=== PATIENT | female | born 1990 | race African-American/Black ===

== ENCOUNTER 2017-04-23 10:16 | Emergency (ER) | payer OTHER ==
[2017-04-23 10:48] VITALS: BP 112/64; PULSE 90; TEMP 98.4
[2017-04-23] MEDS ORDERED: ALBUTEROL SO4 2.5/IPRATROPIUM 0.5 INH SOL 3 ML VIAL.NEB. NEB ONE ×4 (11:20→11:52)
--- NOTE | 2017-04-23 11:23 | PDOC ---
History of Present Illness - General Chief Complaint: Shortness of Breath Stated Complaint: SOB (21 WKS ) Time Seen by Provider: 04/23/17 11:07 History Source: Patient Exam Limitations: No Limitations - History of Present Illness Initial Comments: 04/23/17 11:25 Patient came for evaluation of cough, congestion, and feelings of shortness of breath. Denies fever, denies phlegm production but feels is tight in his wheezing. Denies history of asthma, child has been ill and was treated with antibiotics for strep infection a week ago however no strep culture was taken. Patient denies sore throat pain, ear pain, nausea vomiting. Is 20 weeks and states has gone without complication Timing/Duration: unsure, 24 hours Severity: mild, moderate Associated Symptoms: reports: cough, malaise. denies: nausea/vomiting Past History - Travel Traveled outside of the country in the last 30 days: No Close contact w/someone who was outside of country & ill: No - Past Medical History Allergies/Adverse Reactions: Allergies Allergy/AdvReac Type Severity Reaction Status Date / Time No Known Allergies Allergy Verified 04/23/17 10:44 Home Medications: Ambulatory Orders Vit No.124/Iron/Folic [ Vitamin Tablet] 1 each PO DAILY Albuterol Sulfate Inhaler - [Ventolin HFA Inhaler -] 1 - 2 inh PO Q4H #1 inhaler 04/23/17 Prednisone [Deltasone -] 20 mg PO BID #8 tablet 04/23/17 CVA: No COPD: No DVT: No - Immunization History Immunization Up to Date: Yes - Suicide/Smoking/Psychosocial Hx Smoking History: Never smoked Have you smoked in the past 12 months: No Information on smoking cessation initiated: No Hx Alcohol Use: No Drug/Substance Use Hx: No Substance Use Type: None Review of Systems - Review of Systems Able to Perform ROS?: Yes Is the patient limited Z[place]ian proficient: Yes Constitutional: Yes: Symptoms Reported, See HPI, Loss of Appetite, Malaise. No : Fever HEENTM: Yes: Symptoms Reported, See HPI, Nose Congestion. No: Throat Pain, Throat Swelling Respiratory: Yes: Symptoms reported, See HPI, Cough, Shortness of Breath, Wheezing Cardiac (ROS): No: Symptoms Reported ABD/GI: No: Symptoms Reported Musculoskeletal: Yes: See HPI. No: Symptoms Reported Integumentary: No: Symptoms Reported, See HPI Neurological: Yes: Symptoms reported, See HPI, Headache All Other Systems: Reviewed and Negative *Physical Exam - Vital Signs Last Vital Signs Temp Pulse Resp BP Pulse Ox 98.4 F 90 15 112/64 98 04/23/17 10:44 04/23/17 10:44 04/23/17 10:44 04/23/17 10:44 04/23/17 10:44 - Physical Exam General Appearance: Yes: Nourished, Appropriately Dressed, Apparent Distress, Mild Distress HEENT: positive: ARNALDO, Normal ENT Inspection, TMs Normal (congested but landmarks easily visualized), Pharynx Normal (no redness, swelling or exudate. Noticed some whitish clear thick posterior sinus drainage). negative: Sinus Tenderness Neck: positive: Supple, Lymphadenopathy (R), Lymphadenopathy (L). negative: Tender Respiratory/Chest: positive: Normal Breath Sounds, Wheezing. negative: Lungs Clear Cardiovascular: positive: Regular Rhythm Gastrointestinal/Abdominal: positive: Normal Bowel Sounds, Soft. negative: Tender ( abdomen ), Guarding, Rebound Musculoskeletal: positive: Normal Inspection Extremity: positive: Normal Capillary Refill, Normal Range of Motion Integumentary: positive: Normal Color, Dry, Warm, Pale Neurologic: positive: manager urgent care II-XII NML intact, Fully Oriented, Alert, Normal Mood/ Affect, Normal Response, Motor Strength 5/5 Medical Decision Making - Medical Decision Making 04/23/17 patient much improved after second DuoNeb, discussed case with Dr. Enriquez who agrees prednisone is indicated for severe asthmatic type symptoms in and encouraged patient follow-up this week as needed *DC/Admit/Observation/Transfer Diagnosis at time of Disposition: Upper respiratory infection, viral - Discharge Dispostion Disposition: HOME Condition at time of disposition: Stable Admit: No - Prescriptions Prescriptions: Albuterol Sulfate Inhaler - [Ventolin HFA Inhaler -] 1 - 2 inh PO Q4H #1 inhaler Prednisone [Deltasone -] 20 mg PO BID #8 tablet - Referrals Referrals: Jayjay Burgos MD [Primary Care Provider] - - Patient Instructions Printed Discharge Instructions: DI for Viral Upper Respiratory Infection -- Adult Additional Instructions: Rest, drink lots of fluids: Teas, water, soups, Pedialyte Saltwater gargles Steamy showers/seem to face break up mucus Avoid contact with others until fevers and cough resolved Lots of handwashing and good hygiene Continue [id number] medications for symptomatic relief Tylenol or Motrin for fever and pain Continue albuterol nebulizers every 4-6 hours for the next 2 days then as needed for continued cough Prednisone as directed until completed Followup with private physician in one to 2 days Return to emergency department / pediatric hospital for worsened symptoms, fevers, dehydration - Post Discharge Activity Forms/Work/School Notes: Back to Work
[2017-04-23] MEDS ORDERED: predniSONE 20 MG TABLET (UD) ONE (12:07)
[2017-04-23] MEDS ORDERED: predniSONE 20 MG TABLET (UD) PO ONE (12:08)
== END 2017-04-23 12:34 | disposition home or self-care (01) ==
LOC: JERFT 10:16
PROC: 3E0F7GC Introduction of Other Therapeutic Substance into Respiratory Tract, Via Natural or Artificial Opening (ICD-10-PCS; principal; 2017-04-23)
PROC: 3E0F7GC Introduction of Other Therapeutic Substance into Respiratory Tract, Via Natural or Artificial Opening (ICD-10-PCS; 2017-04-23)
DX: O99.89 Other specified diseases and conditions complicating pregnancy, childbirth and the puerperium (principal); O99.512 Diseases of the respiratory system complicating pregnancy, second trimester; J06.9 Acute upper respiratory infection, unspecified; Z3A.21 21 weeks gestation of pregnancy
CPT/HCPCS: 99281-25

== ENCOUNTER 2017-08-24 23:20 | Inpatient (IN) | payer OTHER ==
[2017-08-25 01:52] LABS: BASO % 0.5 % (0-2.0); EOS % 0.9 % (0-4.5); HEMATOCRIT 37.2 % (32.4-45.2); HEMOGLOBIN 12.7 GM/dL (10.7-15.3); LYMPH % 8.4 % (8-40); MCH 29.4 pg (25.7-33.7); MCHC 34.1 g/dl (32.0-36.0); MEAN CELL VOLUME 86.3 fl (80-96); MEAN PLT VOLUME 7.7 fl (7.5-11.1); MONO % 5.7 % (3.8-10.2); NEUT % 84.5 % (42.8-82.8); PLATELET COUNT 287 K/MM3 (134-434); RBC 4.31 M/mm3 (3.60-5.2); WHITE BLOOD COUNT 14.5 K/mm3 (4.0-10.0)
[2017-08-25 02:04] LABS: INR 0.93 (0.82-1.09); PROTHROMBIN TIME (PATIENT) 10.5 SEC (9.7-13.0)
[2017-08-25 02:06] LABS: ACTIVATED PTT 22.9 SECONDS (26.9-34.4)
[2017-08-25 02:10] VITALS: BMI 34.3
[2017-08-25 02:11] LABS: ANION GAP 10 (8-16); BLOOD UREA NITROGEN 12 mg/dL (7-18); CALCIUM 8.2 mg/dL (8.5-10.1); CHLORIDE 104 mmol/L (98-107); CO2 24 mmol/L (21-32); CREATININE 0.7 mg/dL (0.55-1.02); GLUCOSE,RANDOM 107 mg/dL (74-106); SODIUM 138 mmol/L (136-145)
[2017-08-25] MEDS ORDERED: BUTORPHANOL TARTRATE 1 MG/ML VIAL IVPB ONE (02:15)
[2017-08-25] MEDS ORDERED: PROMETHAZINE HCL 25 MG/1 ML VIAL IVPB ONE (02:15)
[2017-08-25] MEDS ORDERED: BUTORPHANOL TARTRATE 1 MG/ML VIAL ONE ×2 (02:21)
[2017-08-25] MEDS ORDERED: PROMETHAZINE HCL 25 MG/1 ML VIAL ONE (02:22)
[2017-08-25] MEDS ORDERED: AMPICILLIN SODIUM 2 GM VIAL ONE (02:22)
[2017-08-25] MEDS ORDERED: ELECTROLYTE-148 SOLN 500 ML IV ONE ×2 (02:30→03:30)
[2017-08-25] MEDS ORDERED: AMPICILLIN - 2 GM in SODIUM CHLORIDE 100 ML IVPB ONE (03:00)
[2017-08-25] MEDS ORDERED: ELECTROLYTE-148 SOLN 1,000 ML IV SCH (03:30)
[2017-08-25] MEDS ORDERED: FENTANYL/BUPIVACAINE/NS/PF - PCEA - 50 ML DISP.SYRIN EP ONE ×2 (05:27→09:51)
[2017-08-25] MEDS ORDERED: NALOXONE HCL 0.4 MG/ML VIAL IVPUSH PRN (05:35)
[2017-08-25] MEDS ORDERED: FENTANYL/BUPIVACAINE/NS/PF - PCEA - 50 ML DISP.SYRIN EP SCH (05:45)
[2017-08-25] MEDS ORDERED: AMPICILLIN SODIUM 1 GM VIAL ONE ×2 (06:21→11:00)
[2017-08-25] MEDS: AMPICILLIN - 1 GM in SODIUM CHLORIDE 100 ML IVPB SCH ×2 (06:45→11:03)
[2017-08-25] MEDS ORDERED: DEXTROSE 5%-LACTATED RINGERS 1,000 ML IV SCH (07:15)
--- NOTE | 2017-08-25 07:18 | HP ---
Past Medical History - Primary Care Physician PCP:: Narayan Duran - Admission Chief Complaint: 26yo P1 with at EGA 38w4d admitted with spontaneous labor. History of Present Illness: Spontaneous labor GBS (+) History Source: Patient, Medical Record Limitations to Obtaining History: No Limitations - Past Medical History MANAGER AREA: No: Alzheimer's, CVA, Dementia, Migraine, Multiple Sclerosis, Peripheral Neuropathy, Parkinson's, Seizure, Syncope, TIA, Vertigo, Other Cardiovascular: No: AFIB, Aneurysm, Aortic Insufficiency, Aortic Stenosis, CAD, CHF, Deep Vein Thrombosis, HTN, Hyperlipdemia, HI, Mitral Insufficiency, Mitral Stenosis, Murmur, Pulmonary Hypertension, Other Pulmonary: Yes: Asthma Gastrointestinal: No: Ascites, Cancer, Constipation, Crohn's Disease, Diverticulitis, Diverticulosis, Esophageal Varices, Gastritis, GERD, GI Bleed, Hemorrhoids, Hiatal Hernia, Inflamatory Bowel Disease, Irritable Bowel Disease, Pancreatitis, Peptic Ulcer Disease, Ulcerative Colitis, Other Hepatobiliary: No: Cirrhosis, Cholelithiasis, Cholecystitis, Choledocholithiasis , Hepatitis A, Hepatitis B, Hepatitis C, Other Renal/: No: Renal Failure, Renal Inusuff, BPH, Cancer, Hematuria, Hemodialysis , Neurogenic Bladder, Renal Calculi, UTI, Other ...: 2 ...Para: 1 ...Term: 1 ...: 0 ...Spon : 0 ...Induced : 0 ...Multiple Gestation: 0 ...LMP: 12/01/16 ... Weeks Gestation by Dates: 38.3 ...EDC by Dates: 09/07/17 ...EDC by Sono: 09/05/17 Heme/Onc: No: Anemia, B12 Deficiency, Bleeding Disorder, Cancer, Current Chemotherapy, Current Radiation Therapy, Hemochromatosis, Hypercoaguable State, Myeloproliferative Synd, Sickle Cell Disease, Sickle Cell Trait, Thrombocytopenia, Other Infectious Disease: No: AIDS, C-Diff, Herpes Zoster, HIV, MRSA, STD's, Tuberculosis, VREF, Other Psych: No: Addictions, Anxiety, Bipolar, Depression, Panic, Psychosis, Schizophrenia, Other Musculoskeletal: No: Bursitis, Chronic low back pain, Hemiparesis, Hemiplegia, Osteoarthritis, Paraplegia, Other Rheumatology: No: Fibromyalgia, Gout, Lupus, Rheumatoid Arthritis, Sarcoidosis, Vasculitis, Other ENT: No: Allergic Rhinitis, Sinusitis, Other Endocrine: No: Lyme's Disease, Benji's Disease, Diabetes Insipidus, Diabetes Mellitus, Hyperparathyroidism, Hyperthyroidism, Hypothyroidism, Osteopenia, SIADH, Other Dermatology: No: Basal Cell, Cellulitis, Eczema, Melanoma, Psoriasis, Squamous Cell, Other - Past Surgical History Hx Myomectomy: No Hx Transabdominal Cerclage: No Additional Surgical History: Open wrist fx repair. - Smoking History Smoking history: Never smoked Have you smoked in the past 12 months: No - Alcohol/Substance Use Hx Alcohol Use: No History of Substance Use: reports: None - Social History Usual Living Arrangement: Yes: With Significant Other, With Child ADL: Independent Occupation: Daycare worker History of Recent Travel: No Home Medications - Allergies Allergies/Adverse Reactions: Allergies Allergy/AdvReac Type Severity Reaction Status Date / Time No Known Allergies Allergy Verified 08/24/17 23:50 - Home Medications Home Medications: Ambulatory Orders Vit No.124/Iron/Folic [ Vitamin Tablet] 1 each PO DAILY Albuterol Sulfate Inhaler - [Ventolin HFA Inhaler -] 1 - 2 inh PO Q4H #1 inhaler 04/23/17 Budesonide [Pulmicort Flexhaler] 90 mcg IH BID 08/24/17 Family Disease History - Family Disease History Family Disease History: [place]: Father (Matias andrade) Review of Systems - Review of Systems Constitutional: reports: No Symptoms, Other (Labor pain/ctx) Eyes: reports: No Symptoms HENT: reports: No Symptoms Neck: reports: No Symptoms Cardiovascular: reports: No Symptoms Respiratory: reports: No Symptoms Gastrointestinal: reports: No Symptoms Genitourinary: reports: No Symptoms Breasts: reports: No Symptoms Reported Musculoskeletal: reports: No Symptoms Integumentary: reports: No Symptoms Neurological: reports: No Symptoms Endocrine: reports: No Symptoms Hematology/Lymphatic: reports: No Symptoms Psychiatric: reports: No Symptoms Pain Intensity: 8 Physical Exam - Maternity Vital Signs: Vital Signs Temperature 98.8 F 08/25/17 06:00 Pulse Rate 95 H 08/25/17 06:45 Respiratory Rate 18 08/25/17 06:45 Blood Pressure 110/55 08/25/17 06:45 O2 Sat by Pulse Oximetry (%) 99 08/25/17 06:45 Constitutional: Yes: Well Nourished, No Distress, Calm Eyes: Yes: WNL, Conjunctiva Clear HENT: Yes: WNL, Atraumatic, Normocephalic Neck: Yes: WNL, Supple, Trachea Midline Cardiovascular: Yes: WNL, Regular Rate and Rhythm Lungs: Clear to auscultation, Normal air movement - Abdominal Exam/OB Fundal Height: 38 Number of Fetuses: Single Presentation: Vertex Contractions: Yes Regularity: Regular Intensity: Moderate Monitor Mode: External Heart Rate (range): 140 Heart Rate Location: Midline Category: I Accelerations: Non-Uniform Decelerations: Variable (occasional) - Vaginal Exam/OB Vaginal Bleediing: No Speculum Exam: No Dilatation (cm): 5 Effacement (%): 80 Amniotic Membrane Status: Intact Presentation: Vertex/Position - Physical Exam Musculoskeletal: Yes: WNL Extremities: Yes: WNL Edema: No Integumentary: Yes: WNL Deep Tendon Reflex Grade: Normal +2 ...Motor Strength: WNL Psychiatric: Yes: WNL, Alert, Oriented - Labs Lab Results: CBC, BMP 08/25/17 01:38 08/25/17 01:38 Hemorrhage Risk Assessment - Risk Factors Medium Risk Factors: Yes: None High Risk Factors: Yes: None Risk Score: 1 Risk Level: Medium Risk Assessment/Plan 26yo P1 with at EGA 38w4d admitted with spontaneous labor. Fetus with Category I tracing and does not require intervention. Pt with spontaneous labor , now in active phase. Plan to monitor labor progress. Anticipate . IV abx for GBS.
[2017-08-25] MEDS ORDERED: OXYTOCIN 30 UNITS in 0.9% NS 30 UNIT/500 ML INFUS.BAG IVPB ONE ×2 (08:26→11:10)
[2017-08-25] MEDS ORDERED: TUBERCULIN PPD 5 TU/0.1ML SYRINGE (IN PATIENT USE ONLY) ID ONE (09:00)
--- NOTE | 2017-08-25 09:49 | PN ---
Ante-Partal Exam - Subjective Subjective: No complaints Vital Signs: Vital Signs Temperature 99.2 F 08/25/17 09:21 Pulse Rate 107 H 08/25/17 09:00 Respiratory Rate 18 08/25/17 09:00 Blood Pressure 107/62 08/25/17 09:00 O2 Sat by Pulse Oximetry (%) 99 08/25/17 09:00 Bleeding: No Headache: No Visual changes: No Right upper quadrant pain: No Pain (scale 1-10): 0 - Contractions Contractions: Yes Regularity: Regular (q4min) Intensity: Unaware Monitor Mode: External - Exam during Labor Heart Rate: 140 Variability: Moderate Heart Rate Location: Midline Category: I Monitor Accelerations: Present Monitor Decelerations: None Exam: Vaginal Dilatation (cm): 6 Effacement (%): 90 Amniotic Membrane Status: Ruptured (AROM) Presentation: Vertex Station: 0 - Intrapartum Hemorrhage Risk Medium Risk Factors: None High Risk Factors: None Risk Score: 0 Risk Level: Low Risk - Assessment/Plan Assessment/Plan: 26yo P1 with protracted labor. Fetus with Category I tracing. Plan to augment contractions with pitocin. Plan of care, r/b/a were discussed with pt.
[2017-08-25] MEDS ORDERED: OXYTOCIN 30 UNITS in 0.9% NS 30 UNIT/500 ML INFUS.BAG IVPB SCH (10:00)
[2017-08-25] MEDS ORDERED: LIDOCAINE HCL 1% PRESERVATIVE FREE - 30ML VIAL ONE (11:10)
[2017-08-25] MEDS ORDERED: ALBUTEROL SO4 18 GM HFA INHALER IH PRN ×2 (11:39→14:38)
[2017-08-25] MEDS ORDERED: WITCH HAZEL 50% (TUCKS) 40 PAD/JAR PAD TP PRN (11:41)
[2017-08-25] MEDS ORDERED: ACETAMINOPHEN 325 MG TABLET (FP) PO PRN (11:41)
[2017-08-25] MEDS ORDERED: IBUPROFEN 600 MG TABLET (FP) PO PRN (11:41)
[2017-08-25] MEDS ORDERED: BENZOCAINE 28 GM HEMORRHOIDAL OINTMENT TP PRN (11:41)
[2017-08-25] MEDS ORDERED: BISACODYL 10 MG SUPP.RECT RC PRN (11:41)
[2017-08-25] MEDS ORDERED: METHYLERGONOVINE MALEATE 0.2 MG/1 ML AMP IM PRN (11:41)
[2017-08-25] MEDS ORDERED: BENZOCAINE 20% 57 GM BOTTLE TP PRN (11:41)
[2017-08-25] MEDS ORDERED: D5W-LR W/ 20 UNITS OXYTOCIN 1,000 ML IV SCH (11:45)
--- NOTE | 2017-08-25 11:54 | PN ---
Delivery - Delivery Vaginal Delivery: No Problems, Spontaneous Type of Anesthesia: Epidural Episiotomy/Laceration: None EBL (cc): 300 Delivery, Single - Stages of Labor Date 1st Stage Initiatied: 08/24/17 Time 1st Stage Initiated: 15:15 Date 2nd Stage Initiated: 08/25/17 Time 2nd Stage Initiated: 11:10 Date of Delivery: 08/25/17 Time of Delivery: 11:23 Date Placenta Delivered: 08/25/17 Time Placenta Delivered: 11:28 Placenta: Yes: Spontaneous, Normal Configuration - Condition of Infant Tanning Salon Attendant/Distribution Tech Present: [place]: MagdalenoDejon grant Gender: Female Weight: 2.863 kg Position: Left, OA Total Hours ROM (Hrs/Mins): 1hr/51mins - 1 Minute Total Score: 9 5 Minutes Total Score: 9 - Feeding Plan Initial Plan: Exclusive throughout hospitalization Benefits of Exclusively reinforced: Yes
[2017-08-25] MEDS ORDERED: OXYTOCIN 20 UNITS in 0.9% NS 20 UNIT/1,000 ML INFUS.BAG IV SCH (13:00)
[2017-08-25] MEDS: CLINDAMYCIN 900 MG PREMIX IVPB 900 MG/50 ML BAG IVPB SCH (17:05)
[2017-08-25] MEDS: GENTAMICIN INJECTION 100 MG in DEXTROSE 5%-WATER - 100 ML IVPB SCH (17:56)
[2017-08-25] MEDS: MOMETASONE FUROATE 220 MCG/IH INHALER IH SCH (21:19)
[2017-08-26] MEDS: GENTAMICIN INJECTION 100 MG in DEXTROSE 5%-WATER - 100 ML IVPB SCH (01:27)
[2017-08-26] MEDS: CLINDAMYCIN 900 MG PREMIX IVPB 900 MG/50 ML BAG IVPB SCH (01:27)
--- NOTE | 2017-08-26 07:57 | DS ---
Physical Exam-GOVERNMENT EMPLOYEE Vital Signs: Vital Signs Temperature 97.8 F 08/26/17 05:31 Pulse Rate 74 08/26/17 05:31 Respiratory Rate 18 08/26/17 05:31 Blood Pressure 85/41 08/26/17 05:31 O2 Sat by Pulse Oximetry (%) 100 08/25/17 12:45 Constitutional: Yes: Well Nourished, No Distress, Calm Eyes: Yes: WNL, Conjunctiva Clear HENT: Yes: WNL, Atraumatic, Normocephalic Neck: Yes: WNL, Supple, Trachea Midline Cardiovascular: Yes: WNL, Regular Rate and Rhythm Respiratory: Yes: WNL, Regular, CTA Bilaterally Gastrointestinal: Yes: WNL, Normal Bowel Sounds, Soft Renal/: Yes: WNL Pelvis: Yes: WNL External Genitalia: Yes: Normal ....Post : Yes: Uterus firm, Uterus non-tender Breast(s): Yes: WNL Musculoskeletal: Yes: WNL Extremities: Yes: WNL Edema: No Integumentary: Yes: WNL Neurological: Yes: WNL, Alert, Oriented ...Motor Strength: WNL Psychiatric: Yes: WNL, Alert, Oriented Labs: CBC, BMP 08/25/17 01:38 Delivery - Delivery Vaginal Delivery: No Problems, Spontaneous Type of Anesthesia: Epidural Episiotomy/Laceration: None EBL (cc): 300 Delivery, Single - Stages of Labor Date 1st Stage Initiatied: 08/24/17 Time 1st Stage Initiated: 15:15 Date 2nd Stage Initiated: 08/25/17 Time 2nd Stage Initiated: 11:10 Date of Delivery: 08/25/17 Time of Delivery: 11:23 Time Placenta Delivered: 11:28 Placenta: Yes: Spontaneous, Normal Configuration - Condition of Gun Profiler/Quality Control Clerk Present: [place]: Dejon Dolan Infant Gender: Female Weight: 6 lb 5 oz Position: Left, OA Total Hours ROM (Hrs/Mins): 1hr/51mins - 1 Minute Total Score: 9 5 Minutes Total Score: 9 - [place] Feeding Plan Initial Plan: Exclusive throughout hospitalization Benefits of Exclusively reinforced: Yes Discharge Summary Reason For Visit: LABOR ADMIT Condition: Good - Instructions Diet, Activity, Other Instructions: Physical activity Resume your normal everyday activity as tolerated no heavy lifting or exercise until seen by your surgeon. You may walk unlimited ty of and climb stairs. You may resume driving the car when you feel safe and comfortable behind the wheel. No sexual activity as instructed. Wound care If you have a bandage, leave it on, and keep dry for 48-72 hours. After that time discard the outer bandage. If they are tapes on the skin under the out of bandage leave them in place. They will peel off in the next 7 to 10 days. Do Not Peel them off. You may shower the day after surgery. If there are tapes present on the skin, you may shower over them. Diet There are no dietary restrictions. Eat healthy, high-fiber foods. Drink 6 to 8 glasses of liquid each day. This will assist in keeping your bowels are regular. Pain management You may take Tylenol or acetaminophen or Ibuprofen (for example, Motrin, Advil etc.) from my pain prescription medication is ordered should be taken as prescribed for moderate to severe pain. Call MD for any of the following: Severe pain not relieved by medication Fever of 101 or higher Excessive bleeding or drainage on dressing Inability to urinate Disposition: HOME - Home Medications Comprehensive Discharge Medication List: Ambulatory Orders Vit No.124/Iron/Folic [ Vitamin Tablet] 1 each PO DAILY Albuterol Sulfate Inhaler - [Ventolin HFA Inhaler -] 1 - 2 inh PO Q4H #1 inhaler 04/23/17 Budesonide [Pulmicort Flexhaler] 90 mcg IH BID 08/24/17
--- NOTE | 2017-08-26 07:57 | PN ---
Post Progress Note - Subjective Subjective: No complains, voiding, tolerating regular food, ambulating, breast feeding Post Day: 1 Type of Delivery: Vital Signs: Vital Signs Temperature 97.8 F 08/26/17 05:31 Pulse Rate 74 08/26/17 05:31 Respiratory Rate 18 08/26/17 05:31 Blood Pressure 85/41 08/26/17 05:31 O2 Sat by Pulse Oximetry (%) 100 08/25/17 12:45 Breast Exam: Yes: Soft Uterus: Yes: Fundus Firm Abdomen/GI: Yes: Abdomen soft Lochia: Yes: Rubra Lochia, amount: Small Extremities: Yes: Calves non-tender Perineum: Yes: Intact Activity: Ambulating - Labs Labs: CBC WBC 14.5 K/mm3 (4.0-10.0) H 08/25/17 01:38 RBC 4.31 M/mm3 (3.60-5.2) 08/25/17 01:38 Hgb 12.7 GM/dL (10.7-15.3) 08/25/17 01:38 Hct 37.2 % (32.4-45.2) 08/25/17 01:38 MCV 86.3 fl (80-96) 08/25/17 01:38 MCH 29.4 pg (25.7-33.7) 08/25/17 01:38 MCHC 34.1 g/dl (32.0-36.0) 08/25/17 01:38 RDW 14.0 % (11.6-15.6) 08/25/17 01:38 Plt Count 287 K/MM3 (134-434) 08/25/17 01:38 MPV 7.7 fl (7.5-11.1) 08/25/17 01:38 Neutrophils % 84.5 % (42.8-82.8) H 08/25/17 01:38 Lymphocytes % 8.4 % (8-40) 08/25/17 01:38 Monocytes % 5.7 % (3.8-10.2) 08/25/17 01:38 Eosinophils % 0.9 % (0-4.5) 08/25/17 01:38 Basophils % 0.5 % (0-2.0) 08/25/17 01:38 Assessment/Plan 26yo P2 now, s/p doing well VSS, Afebrile continue routine care Rh positive, no need for RhoGam plan to d/c 08/27/17 NPV for 6wks RTO 4-6wks
[2017-08-26 08:03] LABS: BASO % 0.5 % (0-2.0); EOS % 3.7 % (0-4.5); LYMPH % 12.6 % (8-40); MCH 29.5 pg (25.7-33.7); MCHC 34.3 g/dl (32.0-36.0); MEAN CELL VOLUME 86.3 fl (80-96); MEAN PLT VOLUME 7.5 fl (7.5-11.1); MONO % 6.3 % (3.8-10.2); NEUT % 76.9 % (42.8-82.8); PLATELET COUNT 256 K/MM3 (134-434); RBC 4.06 M/mm3 (3.60-5.2); RDW 14.6 % (11.6-15.6); WHITE BLOOD COUNT 13.8 K/mm3 (4.0-10.0)
[2017-08-26] MEDS: PRENATAL VITAMINS W/ FOLIC ACID TABLET (FP) PO SCH (09:50)
[2017-08-26] MEDS ORDERED: PATIENT'S OWN MEDICATION (NON-FORMULARY) (Prenatal Vit No.124/Iron/Folic [Prenatal Vitamin PO SCH (10:00)
[2017-08-26] MEDS: MOMETASONE FUROATE 220 MCG/IH INHALER IH SCH (21:02)
[2017-08-26] MEDS ORDERED: SENNOSIDES/DOCUSATE COMBO (SENNA PLUS) TABLET (UD) PO PRN (22:00)
[2017-08-27 08:28] VITALS: BP 99/59; PULSE 80; TEMP 97.9
[2017-08-27] MEDS: PRENATAL VITAMINS W/ FOLIC ACID TABLET (FP) PO SCH (10:05)
--- NOTE | 2017-08-27 12:10 | PN ---
Post Progress Note - Subjective Subjective: No complaints Post Day: 2 Type of Delivery: Vital Signs: Vital Signs Temperature 97.9 F 08/27/17 08:27 Pulse Rate 80 08/27/17 08:27 Respiratory Rate 20 08/27/17 08:27 Blood Pressure 99/59 08/27/17 08:27 O2 Sat by Pulse Oximetry (%) 100 08/26/17 21:00 Breast Exam: Yes: Soft Uterus: Yes: Fundus Firm, Fundus below umbilicus, Non-tender Abdomen/GI: Yes: Abdomen soft, Passing flatus, Tolerating PO Lochia: Yes: Rubra Lochia, amount: Small Extremities: Yes: Calves non-tender Perineum: Yes: Intact Activity: Ambulating - Labs Labs: CBC WBC 13.8 K/mm3 (4.0-10.0) H 08/26/17 06:00 RBC 4.06 M/mm3 (3.60-5.2) 08/26/17 06:00 Hgb 12.0 GM/dL (10.7-15.3) 08/26/17 06:00 Hct 35.0 % (32.4-45.2) 08/26/17 06:00 MCV 86.3 fl (80-96) 08/26/17 06:00 MCH 29.5 pg (25.7-33.7) 08/26/17 06:00 MCHC 34.3 g/dl (32.0-36.0) 08/26/17 06:00 RDW 14.6 % (11.6-15.6) 08/26/17 06:00 Plt Count 256 K/MM3 (134-434) 08/26/17 06:00 MPV 7.5 fl (7.5-11.1) 08/26/17 06:00 Neutrophils % 76.9 % (42.8-82.8) 08/26/17 06:00 Lymphocytes % 12.6 % (8-40) D 08/26/17 06:00 Monocytes % 6.3 % (3.8-10.2) 08/26/17 06:00 Eosinophils % 3.7 % (0-4.5) D 08/26/17 06:00 Basophils % 0.5 % (0-2.0) 08/26/17 06:00 Assessment/Plan 26yo P2 s/p , doing well, stable, afebrile.
== END 2017-08-27 12:50 | disposition home or self-care (01) | DRG 560 ==
LOC: JDEL 23:20 → JLDR 08-25 01:30 → J3W 08-25 12:35
PROVIDERS: ADMIT Obstetrics & Gynecology; ATTEND Obstetrics & Gynecology
PROC: 10E0XZZ Delivery of Products of Conception, External Approach (ICD-10-PCS; principal; 2017-08-25)
DX: O99.824 Streptococcus B carrier state complicating childbirth (principal); Z3A.38 38 weeks gestation of pregnancy; Z37.0 Single live birth
CPT/HCPCS: 36415; 59025; 59409; 80048; 85025; 85610; 85730; 86593; 86850; 86900; 86901